=== PATIENT | male | born 1960 | race Caucasian/White ===

== ENCOUNTER 2022-01-10 08:29 | Outpatient (CLI) | payer BC, SELFPAY ==
[2022-01-10 13:57] LABS: Vitamin D 25 Hydroxy* 35 ng/mL (30-80)
== END 2022-01-10 08:30 | disposition home or self-care (01) ==
LOC: NFLDREF 08:30
PROVIDERS: PCP Family Medicine; Visit Provider Family Medicine
DX: E55.9 Vitamin D deficiency, unspecified (principal); M05.9 Rheumatoid arthritis with rheumatoid factor, unspecified
CPT/HCPCS: 82306

== ENCOUNTER 2022-01-10 14:23 | Outpatient (REF) | payer BC, SELFPAY ==
[2022-01-10 15:31] LABS: Creatinine* 1.1 mg/dL (0.5-1.5); Estimated Glomerular Filt Rate 77 ml/min
[2022-01-10 15:32] LABS: Alanine Aminotransferase* 27 U/L (4-50); Aspartate Amino Transferase* 37 U/L (12-35)
[2022-01-10 15:37] LABS: C Reactive Protein* < 0.5 mg/dL (0.5-1.0)
[2022-01-10 15:40] LABS: Basophils Absolute Auto 0.04 K/uL (0.00-0.30); Basophils Percent Auto 0.4 % (0.0-3.0); Eosinophils Absolute Auto 0.24 K/uL (0.00-0.50); Eosinophils Percent Auto 2.5 % (0.0-7.0); Hematocrit 40.9 % (37.0-53.0); Immature Granulocytes Abs Auto 0.09 K/uL (0.00-0.30); Lymphocytes Percent Auto 19.1 % (20-44); Mean Corpuscular HGB Conc 34 gm/dL (32-36); Mean Corpuscular Hemoglobin 33 pg (26-34); Mean Corpuscular Volume 97 fL (80-100); Monocytes Percent Auto 8.4 % (0.0-11.0); Neutrophils Absolute Auto 6.52 K/uL (1.7-7.0); Neutrophils Percent Auto 68.7 % (42.0-72.0); Platelet Count* 240 K/uL (140-440); White Blood Count* 9.51 K/uL (4.50-11.00)
[2022-01-10 15:57] LABS: Slide Review Reflex No
[2022-01-10 16:37] LABS: Erythrocyte SedimentationRate* 6 mm/hr (2-15)
== END 2022-01-10 14:24 | disposition home or self-care (01) ==
LOC: NPINS 14:23
PROVIDERS: PCP Family Medicine; Visit Provider Family Medicine
DX: M05.9 Rheumatoid arthritis with rheumatoid factor, unspecified (principal)
CPT/HCPCS: 82565; 84450; 84460; 85025; 85651; 86140

== ENCOUNTER 2022-02-16 13:05 | Outpatient (CLI) | payer BC, SELFPAY ==
--- NOTE | 2022-02-16 14:30 | CRLHL7_ITS ---
For Patients: As a result of the Century Cures Act, medical imaging exams and procedure reports are released immediately into your electronic medical record. You may view this report before your referring provider. If you have questions, please contact your health care provider. DXA BONE MINERAL DENSITY STUDY Current height (in): 60.0. Weight (lb): 175.0. Menopause age: Not provided. Ethnicity: White. 1. Have you had a previous hip or vertebral fracture? No. 2. Have you had any fractures during your adult life which did not result from significant trauma (e.g., auto accident)? No. 3. Did either of your parents have a hip fracture? No. 4. Do you smoke? No. 5. Have you ever taken Glucocorticoids? No. 6. Do you have rheumatoid arthritis? Yes. 7. Do you have secondary osteoporosis? No. 8. Do you drink 3 or more alcoholic drinks per day? No. 9. Are you being treated for osteoporosis? No. 10. Have you ever taken any of the following medications: Actonel, Evista, Fosamax, Miacalcin, Reclast, Boniva, Forteo, HRT (i.e. estrogen/hormone therapy), Protelos, Prolia, Vitamin D, Calcium, other ??? please specify. ANSWER: Yes, Fosamax, vitamin D, calcium. 11. Do you have any of the following medical conditions: Anorexia or bulimia, asthma or emphysema, end stage renal disease, hyperparathyroidism, any seizure disorders, cancer, inflammatory bowel diseases, hysterectomy, other ??? please specify. ANSWER: No. 12. What was your maximum height (inches)? 72. 13. Do you perform weight bearing exercise regularly? No. 14. Do you regularly consume dairy products? Yes. 15. Do you drink caffeinated beverages? Yes. TECHNIQUE: Bone mineral density study was performed using the [email or web address]. FINDINGS: The results of the study expressed as bone mineral density (BMD) are as follows: Lumbar spine L1 to L3: BMD: 1.575 g/cm2. T-score: 4.6. Z-score: 5.2. Neck Left: BMD: 0.687 g/cm2. T-score: -1.8. Z-score: -0.8. Right: BMD: 0.714 g/cm2. T-score: -1.6. Z-score: -0.6. Total Left: BMD: 0.921 g/cm2. T-score: -0.7. Z-score: -0.3. Right: BMD: 0.942 g/cm2. T-score: -0.6. Z-score: -0.1. IMPRESSION: Osteopenia. COMPARISON: Compared with scan of 05/25/2016, the bone mineral density has increased by 22.6 percent at the spine and increased by 13.7 percent at the hip. FRAX 10-year Fracture Risk Major Osteoporotic Fracture: 7.9 percent Hip Fracture: 1.2 percent Reported Risk Factors: [place] () Neck BMD = 0.687, BMI = 34.2 Tam Figueroa M.D. Diagnostic Radiologist [email or web address] Transcribed: 9:41 a.m. DW/Dictated by: Tam Figueroa MD @ 02/17/2022 8:22:00 AM (Electronically Signed)
== END 2022-02-16 13:06 | disposition home or self-care (01) ==
LOC: RAD 13:07
PROVIDERS: PCP Family Medicine; Visit Provider Family Medicine
DX: I05.0 Rheumatic mitral stenosis (principal); I34.0 Nonrheumatic mitral (valve) insufficiency; I51.7 Cardiomegaly; M81.0 Age-related osteoporosis without current pathological fracture; M85.89 Other specified disorders of bone density and structure, multiple sites
CPT/HCPCS: 77080; 93306

== ENCOUNTER 2022-06-16 13:55 | Outpatient (RCR) | payer BC, SELFPAY ==
[2022-06-16 15:46] LABS: Basophils Percent Auto 0.4 % (0.0-3.0); Eosinophils Percent Auto 3.2 % (0.0-7.0); Hematocrit 42.3 % (37.0-53.0); Hemoglobin* 14.4 gm/dL (13.5-17.5); Immature Granulocytes Pct Auto 0.5 %; Lymphocytes Percent Auto 9.5 % (20-44); Mean Corpuscular HGB Conc 34 gm/dL (32-36); Mean Corpuscular Hemoglobin 33 pg (26-34); Mean Corpuscular Volume 98 fL (80-100); Monocytes Percent Auto 10.5 % (0.0-11.0); Neutrophils Percent Auto 75.9 % (42.0-72.0); Platelet Count* 249 K/uL (140-440); RDW Coefficient of Variation % 13.8 % (11.5-15.5); Red Blood Count 4.32 m/uL (4.30-5.90); White Blood Count* 11.33 K/uL (4.50-11.00)
[2022-06-16 15:50] LABS: Slide Review Reflex No
[2022-06-16 16:19] LABS: Aspartate Amino Transferase* 31 U/L (12-35); Creatinine* 1.2 mg/dL (0.5-1.5); Estimated Glomerular Filt Rate 69 ml/min
[2022-06-16 16:20] LABS: Alanine Aminotransferase* 28 U/L (4-50)
== END 2023-05-27 21:24 | disposition home or self-care (01) ==
LOC: LAB 13:55
PROVIDERS: Internal Medicine Rheumatology; PCP Family Medicine
DX: Z79.899 Other long term (current) drug therapy (principal)
CPT/HCPCS: 36415; 82565; 84450; 84460; 85025

== ENCOUNTER 2022-11-17 13:22 | Outpatient (REF) | payer BC, SELFPAY ==
[2022-11-17 14:14] LABS: Basophils Percent Auto 0.4 % (0.0-3.0); Eosinophils Percent Auto 2.1 % (0.0-7.0); Hematocrit 43.4 % (37.0-53.0); Hemoglobin* 14.6 gm/dL (13.5-17.5); Immature Granulocytes Pct Auto 1.1 %; Lymphocytes Percent Auto 9.2 % (20-44); Mean Corpuscular HGB Conc 34 gm/dL (32-36); Mean Corpuscular Hemoglobin 33 pg (26-34); Mean Corpuscular Volume 98 fL (80-100); Monocytes Percent Auto 6.5 % (0.0-11.0); Neutrophils Percent Auto 80.7 % (42.0-72.0); Platelet Count* 312 K/uL (140-440); RDW Coefficient of Variation % 13.1 % (11.5-15.5); Red Blood Count 4.42 m/uL (4.30-5.90); White Blood Count* 14.06 K/uL (4.50-11.00)
[2022-11-17 14:24] LABS: Slide Review Reflex No
[2022-11-17 14:26] LABS: Aspartate Amino Transferase* 43 U/L (12-35); Creatinine* 1.2 mg/dL (0.5-1.5); Estimated Glomerular Filt Rate 69 ml/min
[2022-11-17 14:27] LABS: Alanine Aminotransferase* 39 U/L (4-50)
== END 2022-11-17 13:23 | disposition home or self-care (01) ==
LOC: NPINS 13:22
PROVIDERS: PCP Family Medicine
DX: M05.9 Rheumatoid arthritis with rheumatoid factor, unspecified (principal)
CPT/HCPCS: 82565; 84450; 84460; 85025

== ENCOUNTER 2023-05-02 08:53 | Outpatient (CLI) | payer BC, SELFPAY | END 2023-05-02 08:54 | disposition home or self-care (01) | LOC: NFLDREF 05-03 10:07 | PROVIDERS: PCP Family Medicine; Referring Provider Family Medicine; Visit Provider Family Medicine | DX: I10 Essential (primary) hypertension (principal); Z12.5 Encounter for screening for malignant neoplasm of prostate; E55.9 Vitamin D deficiency, unspecified; E78.2 Mixed hyperlipidemia | CPT/HCPCS: 80053; 80061; 82306; 84153; 85027 ==

== ENCOUNTER 2023-05-10 15:51 | Outpatient (CLI) | payer BC, SELFPAY | END 2023-05-10 15:52 | disposition home or self-care (01) | LOC: LKVREF 15:53 | PROVIDERS: PCP Family Medicine; Visit Provider Family Medicine | DX: I05.0 Rheumatic mitral stenosis (principal); I10 Essential (primary) hypertension; R06.09 Other forms of dyspnea | CPT/HCPCS: 83880 ==

== ENCOUNTER 2023-05-31 16:01 | Outpatient (CLI) | payer BC, SELFPAY | END 2023-05-31 16:02 | disposition home or self-care (01) | LOC: LKVREF 16:03 | PROVIDERS: PCP Family Medicine; Visit Provider Family Medicine | DX: I50.810 Right heart failure, unspecified (principal) | CPT/HCPCS: 83880 ==

== ENCOUNTER 2023-06-18 13:32 | Outpatient (REF) | payer BC, SELFPAY ==
[2023-06-18 14:12] LABS: Basophils Absolute Auto 0.04 K/uL (0.00-0.30); Basophils Percent Auto 0.4 % (0.0-3.0); Eosinophils Absolute Auto 0.23 K/uL (0.00-0.50); Eosinophils Percent Auto 2.3 % (0.0-7.0); Hematocrit 44.9 % (37.0-53.0); Hemoglobin* 14.4 gm/dL (13.5-17.5); Immature Granulocytes Abs Auto 0.04 K/uL (0.00-0.30); Immature Granulocytes Pct Auto 0.4 %; Lymphocytes Percent Auto 11.2 % (20-44); Mean Corpuscular HGB Conc 32 gm/dL (32-36); Mean Corpuscular Hemoglobin 30 pg (26-34); Mean Corpuscular Volume 94 fL (80-100); Monocytes Percent Auto 9.6 % (0.0-11.0); Neutrophils Percent Auto 76.1 % (42.0-72.0); Platelet Count* 237 K/uL (140-440); RDW Coefficient of Variation % 18.5 % (11.5-15.5); Red Blood Count 4.78 m/uL (4.30-5.90); White Blood Count* 10.03 K/uL (4.50-11.00)
[2023-06-18 14:14] LABS: Slide Review Reflex No
[2023-06-18 14:15] LABS: Aspartate Amino Transferase* 43 U/L (12-35); Creatinine* 1.2 mg/dL (0.5-1.5); Estimated Glomerular Filt Rate 69 ml/min
[2023-06-18 14:16] LABS: Alanine Aminotransferase* 32 U/L (4-50)
[2023-06-18 14:47] LABS: Hepatitis B Surface Antigen* Negative (Negative)
[2023-06-18 15:05] LABS: Hepatitis C Virus Antibody* Negative (Negative)
== END 2023-06-18 13:33 | disposition home or self-care (01) ==
LOC: NPINS 13:32
PROVIDERS: PCP Family Medicine; Visit Provider Internal Medicine Rheumatology
DX: M06.9 Rheumatoid arthritis, unspecified (principal)
CPT/HCPCS: 82565; 84450; 84460; 85025; 86480; 86803; 87340

== ENCOUNTER 2023-07-12 16:32 | Outpatient (CLI) | payer BC, SELFPAY | END 2023-07-12 16:33 | disposition home or self-care (01) | LOC: LKVREF 16:33 | PROVIDERS: PCP Family Medicine; Visit Provider Family Medicine | DX: R06.09 Other forms of dyspnea (principal); I50.810 Right heart failure, unspecified | CPT/HCPCS: 83880 ==

== ENCOUNTER 2023-09-10 16:00 | Outpatient (CLI) | payer BC, SELFPAY | END 2023-09-10 16:01 | disposition home or self-care (01) | PROVIDERS: PCP Family Medicine; Visit Provider Family Medicine | DX: I10 Essential (primary) hypertension (principal); I50.810 Right heart failure, unspecified; M06.9 Rheumatoid arthritis, unspecified; R06.00 Dyspnea, unspecified | CPT/HCPCS: 83880; 86140 ==

== ENCOUNTER 2024-02-22 21:52 | Outpatient (REF) | payer BC, SELFPAY ==
[2024-02-22 22:31] LABS: Estimated Glomerular Filt Rate 85 ml/min
[2024-02-22 22:32] LABS: Alanine Aminotransferase* 33 U/L (4-50); Aspartate Amino Transferase* 50 U/L (12-35)
[2024-02-22 22:52] LABS: Basophils Absolute Auto 0.07 K/uL (0.00-0.30); Basophils Percent Auto 0.7 % (0.0-3.0); Eosinophils Absolute Auto 0.28 K/uL (0.00-0.50); Eosinophils Percent Auto 2.8 % (0.0-7.0); Hematocrit 43.2 % (37.0-53.0); Hemoglobin* 14.2 gm/dL (13.5-17.5); Immature Granulocytes Abs Auto 0.11 K/uL (0.00-0.30); Immature Granulocytes Pct Auto 1.1 %; Lymphocytes Percent Auto 12.5 % (20-44); Mean Corpuscular HGB Conc 33 gm/dL (32-36); Mean Corpuscular Hemoglobin 33 pg (26-34); Mean Corpuscular Volume 101 fL (80-100); Monocytes Percent Auto 7.9 % (0.0-11.0); Platelet Count* 261 K/uL (140-440); RDW Coefficient of Variation % 14.5 % (11.5-15.5); White Blood Count* 10.05 K/uL (4.50-11.00)
[2024-02-22 22:59] LABS: Slide Review Reflex No
== END 2024-02-22 21:53 | disposition home or self-care (01) ==
LOC: NPINS 21:52
PROVIDERS: PCP Family Medicine; Visit Provider Internal Medicine Rheumatology
DX: M05.79 Rheumatoid arthritis with rheumatoid factor of multiple sites without organ or systems involvement (principal)
CPT/HCPCS: 82565; 84450; 84460; 85025

== ENCOUNTER 2024-08-08 09:47 | Outpatient (CLI) | payer BC, SELFPAY ==
[2024-08-08 14:04] LABS: Basophils Percent Auto 0.7 % (0.0-3.0); Eosinophils Percent Auto 1.6 % (0.0-7.0); Hematocrit 44.4 % (37.0-53.0); Hemoglobin* 14.5 gm/dL (13.5-17.5); Immature Granulocytes Pct Auto 0.8 %; Lymphocytes Percent Auto 8.8 % (20-44); Mean Corpuscular HGB Conc 33 gm/dL (32-36); Mean Corpuscular Hemoglobin 32 pg (26-34); Mean Corpuscular Volume 99 fL (80-100); Monocytes Percent Auto 6.1 % (0.0-11.0); Platelet Count* 379 K/uL (140-440); RDW Coefficient of Variation % 16.5 % (11.5-15.5); Red Blood Count 4.49 m/uL (4.30-5.90); White Blood Count* 13.35 K/uL (4.50-11.00)
[2024-08-08 14:05] LABS: Slide Review Reflex No
[2024-08-08 14:21] LABS: Aspartate Amino Transferase* 30 U/L (12-35); Estimated Glomerular Filt Rate 85 ml/min
[2024-08-08 14:22] LABS: Alanine Aminotransferase* 24 U/L (4-50)
== END 2024-08-08 09:48 | disposition home or self-care (01) ==
LOC: NPINS 09:47
PROVIDERS: PCP Family Medicine; Visit Provider Internal Medicine Rheumatology
DX: M05.79 Rheumatoid arthritis with rheumatoid factor of multiple sites without organ or systems involvement (principal)
CPT/HCPCS: 82565; 84450; 84460; 85025

== ENCOUNTER 2024-08-19 08:05 | Outpatient (CLI) | payer BC, SELFPAY | END 2024-08-19 08:06 | disposition home or self-care (01) | LOC: NFLDREF 08-20 05:11 | PROVIDERS: PCP Family Medicine; Referring Provider Family Medicine; Visit Provider Family Medicine | DX: I10 Essential (primary) hypertension (principal); E78.5 Hyperlipidemia, unspecified; E55.9 Vitamin D deficiency, unspecified; I50.810 Right heart failure, unspecified; D84.821 Immunodeficiency due to drugs; R63.4 Abnormal weight loss | CPT/HCPCS: 80053; 80061; 82306; 86140 ==

== ENCOUNTER 2024-08-28 13:11 | Outpatient (CLI) | payer BC, SELFPAY | END 2024-08-28 13:12 | disposition home or self-care (01) | LOC: LKVREF 13:11 | PROVIDERS: PCP Family Medicine; Visit Provider Family Medicine | DX: Z12.5 Encounter for screening for malignant neoplasm of prostate (principal) | CPT/HCPCS: G0103 ==

== ENCOUNTER 2024-12-02 10:43 | Outpatient (CLI) | payer BC, SELFPAY | END 2024-12-02 10:44 | disposition home or self-care (01) | LOC: NFLDREF 12-04 15:14 | PROVIDERS: PCP Family Medicine; Referring Provider Family Medicine; Visit Provider Family Medicine | DX: Z95.2 Presence of prosthetic heart valve (principal) | CPT/HCPCS: 85610 ==

== ENCOUNTER 2024-12-09 08:18 | Outpatient (CLI) | payer BC, SELFPAY | END 2024-12-09 08:19 | disposition home or self-care (01) | LOC: NFLDREF 12-11 12:53 | PROVIDERS: PCP Family Medicine; Referring Provider Family Medicine; Visit Provider Family Medicine | DX: Z79.01 Long term (current) use of anticoagulants (principal); Z95.2 Presence of prosthetic heart valve | CPT/HCPCS: 85610 ==

== ENCOUNTER 2024-12-30 09:50 | Outpatient (CLI) | payer BC, SELFPAY | END 2024-12-30 09:51 | disposition home or self-care (01) | LOC: NFLDREF 01-01 13:06 | PROVIDERS: PCP Family Medicine; Referring Provider Family Medicine; Visit Provider Family Medicine | DX: Z79.01 Long term (current) use of anticoagulants (principal) | CPT/HCPCS: 85610 ==

== ENCOUNTER 2025-01-30 09:02 | Outpatient (CLI) | payer BC, SELFPAY | END 2025-01-30 09:03 | disposition home or self-care (01) | LOC: LKVREF 09:02 | PROVIDERS: PCP Family Medicine; Visit Provider Family Medicine | DX: Z79.01 Long term (current) use of anticoagulants | CPT/HCPCS: 85610 ==

== ENCOUNTER 2025-02-10 10:14 | Outpatient (CLI) | payer BC, SELFPAY ==
[2025-02-10 13:44] LABS: Hematocrit* 38.9 % (37.0-53.0); Hemoglobin* 12.2 gm/dL (13.5-17.5); Immature Granulocytes Pct Auto 0.5 %; Mean Corpuscular HGB Conc 31 gm/dL (32-36); Mean Corpuscular Hemoglobin 29 pg (26-34); Mean Corpuscular Volume 92 fL (80-100); RDW Coefficient of Variation % 17.0 % (11.5-15.5); Red Blood Count* 4.24 m/uL (4.30-5.90); White Blood Count* 13.41 K/uL (4.50-11.00)
[2025-02-10 13:50] LABS: Immature Granulocytes Abs Auto 0.10 K/uL (0.00-0.30); Lymphocytes Absolute Auto 1.00 K/uL (0.90-2.90); Slide Review Reflex No
[2025-02-10 14:05] LABS: Alanine Aminotransferase* 30 U/L (4-50); Aspartate Amino Transferase* 45 U/L (12-35); Creatinine* 1.0 mg/dL (0.5-1.5); Estimated Glomerular Filt Rate 85 ml/min
== END 2025-02-10 10:15 | disposition home or self-care (01) ==
LOC: NPINS 10:14
PROVIDERS: PCP Family Medicine; Visit Provider Internal Medicine Rheumatology
DX: D64.9 Anemia, unspecified (principal); N28.9 Disorder of kidney and ureter, unspecified; Z79.01 Long term (current) use of anticoagulants
CPT/HCPCS: 82565; 84450; 84460; 85025

== ENCOUNTER 2025-02-27 08:10 | Outpatient (CLI) | payer BC, SELFPAY | END 2025-02-27 08:11 | disposition home or self-care (01) | LOC: NFLDREF 03-02 11:55 | PROVIDERS: PCP Family Medicine; Referring Provider Family Medicine; Visit Provider Family Medicine | DX: Z79.01 Long term (current) use of anticoagulants (principal) | CPT/HCPCS: 85610 ==

== ENCOUNTER 2025-03-13 14:47 | Outpatient (CLI) | payer BC, SELFPAY | END 2025-03-13 14:48 | disposition home or self-care (01) | LOC: NFLDREF 03-19 14:22 | PROVIDERS: PCP Family Medicine; Referring Provider Family Medicine; Visit Provider Family Medicine | DX: D64.9 Anemia, unspecified (principal); Z79.01 Long term (current) use of anticoagulants | CPT/HCPCS: 85610 ==

== ENCOUNTER 2025-04-10 11:35 | Outpatient (CLI) | payer BC, SELFPAY | END 2025-04-10 11:36 | disposition home or self-care (01) | LOC: NFLDREF 11:35 | PROVIDERS: PCP Family Medicine; Visit Provider Family Medicine | DX: Z95.2 Presence of prosthetic heart valve (principal); Z79.01 Long term (current) use of anticoagulants | CPT/HCPCS: 85610 ==

== ENCOUNTER 2025-05-15 10:47 | Outpatient (CLI) | payer BC, SELFPAY | END 2025-05-15 10:48 | disposition home or self-care (01) | PROVIDERS: PCP Family Medicine; Visit Provider Family Medicine | DX: D64.9 Anemia, unspecified (principal); I50.810 Right heart failure, unspecified; N28.9 Disorder of kidney and ureter, unspecified; N40.0 Benign prostatic hyperplasia without lower urinary tract symptoms; R06.02 Shortness of breath; R35.0 Frequency of micturition; Z79.01 Long term (current) use of anticoagulants | CPT/HCPCS: 80076; 83880; 85610; 87086; G0103 ==